=== PATIENT | female | born 1995 | race Hispanic/Latino ===

== ENCOUNTER 2024-11-25 17:35 | Emergency (ER) | payer OTHER | END 2024-11-25 19:04 | disposition home or self-care (01) | LOC: CSHERS 17:35 | DX: K12.0 Recurrent oral aphthae (principal); B37.0 Candidal stomatitis; F17.210 Nicotine dependence, cigarettes, uncomplicated | CPT/HCPCS: 99283 ==

== ENCOUNTER 2024-11-29 10:45 | Emergency (ER) | payer OTHER ==
[2024-11-29 12:05] LABS: Glucose, Urine (Dipstick) Normal (Negative); Leukocyte Negative (Negative); Protein, Urine (Dipstick) Negative (Neg-Trace); Specific Gravity, Urine 1.010 (1.005-1.030)
[2024-11-29 12:08] LABS: Pregnancy Test - Urine (BHCG) Negative (Negative); Pregu Control Background? CLEAR/WHITE (CLR/WHITE); Pregu Control Bar Appear? YES (CONTROL BAR)
[2024-11-29 12:13] LABS: Bacteria/HPF Rare-Few HPF (None Seen); CAUTI Indications for Culture Pelvic or flank pain; RBC/HPF 0-3 HPF (0-3); WBC/HPF 0-3 HPF (0-3)
[2024-11-29 12:14] LABS: Urine Culture Reflex No No
== END 2024-11-29 12:30 | disposition home or self-care (01) ==
LOC: CSHERS 10:45
DX: R10.32 Left lower quadrant pain (principal); E66.9 Obesity, unspecified; F17.210 Nicotine dependence, cigarettes, uncomplicated
CPT/HCPCS: 81001; 81025; 99284